=== PATIENT | female | born 1990 | race Caucasian/White ===

== ENCOUNTER 2022-11-12 14:00 | Observation (INO) | payer OTHER ==
[~2022-11-12] VITALS: Ht 157.5 cm; Wt 52.2 kg
[2022-11-12] MEDS ORDERED: ACETAMINOPHEN 325 MG TAB PO PRN (14:55)
[2022-11-12 15:03] VITALS: BP 152/95
== END 2022-11-12 16:00 | disposition home or self-care (01) ==
LOC: MLD 14:00
PROVIDERS: ADMIT Obstetrics & Gynecology; ATTEND Obstetrics & Gynecology
DX: O26.892 Other specified pregnancy related conditions, second trimester (principal); R51.9 Headache, unspecified; Z3A.21 21 weeks gestation of pregnancy
CPT/HCPCS: 81000; G0378

== ENCOUNTER 2022-11-20 09:01 | Observation (INO) | payer OTHER ==
[~2022-11-20] VITALS: Ht 154.9 cm; Wt 54.4 kg
--- NOTE | 2022-11-20 09:20 | NUR ---
PATIENT HAS BEEN SCREENED AND CATEGORIZED LOW NUTRITION RISK. PATIENT WILL BE SEEN WITHIN 7 DAYS OF ADMISSION. 11/27/[address]
[2022-11-20] MEDS ORDERED: PNV91TAB10 PO (09:46)
== END 2022-11-20 10:20 | disposition home or self-care (01) ==
LOC: MLD 09:01
PROVIDERS: ADMIT Obstetrics & Gynecology; ATTEND Obstetrics & Gynecology
DX: O26.892 Other specified pregnancy related conditions, second trimester (principal); R03.0 Elevated blood-pressure reading, without diagnosis of hypertension; Z3A.22 22 weeks gestation of pregnancy
CPT/HCPCS: 81000; G0378

== ENCOUNTER 2023-07-19 01:36 | Emergency (ER) | payer OTHER ==
[~2023-07-19] VITALS: Ht 157.5 cm; Wt 63.5 kg
[~2023-07-19 01:36] MED LIST: PNV91TAB10 PO
[2023-07-19 01:39] VITALS: BP 148/119; PULSE 104; RESP 20; TEMP 99.8; O2SAT 99
[2023-07-19] MEDS ORDERED: METOCLOPRAMIDE 10 MG TAB PO ONE (02:05)
[2023-07-19] MEDS ORDERED: ACETAMINOPHEN EXTRA STRENGTH 500 MG TAB PO ONE (02:05)
[2023-07-19] MEDS ORDERED: KETOROLAC 60 MG/2 ML VIAL IM ONE (02:05)
[2023-07-19] MEDS ORDERED: diphenhydrAMINE 50 MG/ML VIAL IVP ONE (02:40)
[2023-07-19] MEDS ORDERED: PROCHLORPERAZINE 10 MG/2 ML VIAL IVP ONE (02:40)
[2023-07-19] MEDS ORDERED: NACL 0.9% 1,000 ML IV ONE (02:40)
[2023-07-19 03:46] VITALS: BP 158/106; PULSE 80; RESP 18; TEMP 98.9; O2SAT 99
== END 2023-07-19 03:43 ==
LOC: MED 01:36
DX: R51.9 Headache, unspecified (principal); F41.9 Anxiety disorder, unspecified; I10 Essential (primary) hypertension; Z79.899 Other long term (current) drug therapy
CPT/HCPCS: 96372; 96374; 96375; 99284; J0780; J1200; J1885; J7030; J8597; Q0163